=== PATIENT | female | born 1955 | race Two or more races ===

== ENCOUNTER 2017-07-24 10:27 | Emergency (ER) | payer BC, OTHER ==
[~2017-07-24] VITALS: Ht 165.1 cm; Wt 72.6 kg
[2017-07-24 10:37] VITALS: BP 163/105
[2017-07-24 11:16] LABS: APPEARANCE,URINE Slightly Cloudy (CLEAR); BILIRUBIN,URINE Negative (NEGATIVE); BLOOD, URINE Small Ery/uL (NEGATIVE); COLOR,URINE Yellow (YELLOW); KETONES,URINE Negative (NEGATIVE); LEUKOCYTE ESTERASE ,URINE Large (NEGATIVE); NITRITE, URINE Positive (NEGATIVE); PH,URINE 6.5 (5.0-8.0); PROTEIN,URINE Negative (NEGATIVE); UGLUCOSE Negative (NEGATIVE); UROBILINOGEN,URINE 0.2 EU/dL (0.2)
[2017-07-24 11:22] LABS: BACTERIA,URINE 1+ /HPF (None Seen); SQUAMOUS EPITHELIAL CELL,UR Few /HPF (None Seen); WBC,URINE 21-50 /HPF (0-3)
== END 2017-07-24 11:37 | disposition home or self-care (01) ==
LOC: ER 10:29
DX: N39.0 Urinary tract infection, site not specified (principal); E78.00 Pure hypercholesterolemia, unspecified
CPT/HCPCS: 81000-TC; 87086-TC; 87186-TC; A4606; Z7610

== ENCOUNTER 2017-11-25 12:54 | Emergency (ER) | payer BC, OTHER ==
[~2017-11-25] VITALS: Ht 165.1 cm; Wt 74.8 kg
[2017-11-25 13:02] VITALS: BP 138/78
[2017-11-25 14:23] LABS: APPEARANCE,URINE Slightly Cloudy (CLEAR); BILIRUBIN,URINE Negative (NEGATIVE); BLOOD, URINE Trace-intact Ery/uL (NEGATIVE); COLOR,URINE Dark (YELLOW); KETONES,URINE Negative (NEGATIVE); LEUKOCYTE ESTERASE ,URINE Small (NEGATIVE); NITRITE, URINE Positive (NEGATIVE); PH,URINE 7.5 (5.0-8.0); PROTEIN,URINE 30 mg/dl (NEGATIVE); UGLUCOSE 100 MG/DL mg/dL (NEGATIVE)
[2017-11-25 14:25] LABS: BACTERIA,URINE 3+ /HPF (None Seen); SQUAMOUS EPITHELIAL CELL,UR Few /HPF (None Seen)
== END 2017-11-25 14:59 | disposition home or self-care (01) ==
LOC: ER 12:55
DX: R30.0 Dysuria (principal); N39.0 Urinary tract infection, site not specified; E78.00 Pure hypercholesterolemia, unspecified
CPT/HCPCS: 81000-TC; 87086-TC; A4606; Z7610

== ENCOUNTER 2020-04-17 23:01 | Emergency (ER) | payer MEDICARE, OTHER ==
[~2020-04-17] VITALS: Ht 157.5 cm; Wt 81.6 kg
--- NOTE | 2020-04-17 23:10 | NUR ---
PT GOLDY FROM HOME C/O DIFFICULTY SWALLOWING AND SORE THROAT. PT STATES SHE HAD AN ALLERGIC REACTION TO HONEY X2 DAYS AGO AND WAS SEEN BY PMD, PRESCRIBED PREDNISONE. PT O2 SAT 100% ROOM AIR, SPEAKING SOFT SPOKEN IN COMPLETE SENTENCES. PT AAOX4. RESPIRATIONS EVEN AND UNLABORED. SKIN WARM AND INTACT. NO ACUTE DISTRESS NOTED AT THIS TIME. PLACED ON MONITOR, WILL CONTINUE TO MONITOR
[2020-04-17] MEDS ORDERED: diphenhydrAMINE HCL 50 MG CAPSULE ONE (23:22)
[2020-04-17] MEDS ORDERED: FAMOTIDINE (20 MG) 20 MG TABLET ONE ×2 (23:22→23:24)
[2020-04-17] MEDS ORDERED: diphenhydrAMINE HCL 50 MG CAPSULE PO ONE (23:30)
[2020-04-17] MEDS ORDERED: FAMOTIDINE (20 MG) 20 MG TABLET PO ONE (23:30)
--- NOTE | 2020-04-17 23:34 | NUR ---
PT REFUSED BENADRYL AND PEPCID AT THIS TIME. DR. PRICE MADE AWARE
[2020-04-17 23:37] LABS: EOSINOPHILS % (AUTO) 1.4 % (0.0-6.0); HEMATOCRIT 39 % (33-45); HEMOGLOBIN 13.1 g/dL (11.5-14.8); LYMPHOCYTES # (AUTO) 1.8 /CMM (0.8-4.8); LYMPHOCYTES % (AUTO) 39.1 % (20.0-44.0); MEAN CORPUSCULAR HGB CONC 34 g/dl (31.0-36.0); MEAN CORPUSCULAR VOLUME 92 fL (82-100); MONOCYTES # (AUTO) 0.4 /CMM (0.1-1.30); NEUTROPHILS # (AUTO) 2.4 /CMM (1.8-8.9); NEUTROPHILS % (AUTO) 50.5 % (43.0-81.0); PLATELET COUNT (AUTO) 219 /CMM (150-450); RED BLOOD CELL COUNT(AUTO) 4.21 MIL/uL (4.0-5.2); WHITE BLOOD COUNT (AUTO) 4.7 K/uL (4.3-11.0)
[2020-04-17] MEDS ORDERED: IOHEXOL-300 100 ML VIAL IV ONE (23:38)
[2020-04-17] MEDS ORDERED: IV NS 0.9% 250 ML IV ONE (23:39)
[2020-04-17 23:47] LABS: CALCIUM, SERUM 9.3 mg/dL (8.5-10.1); CREATININE 0.7 mg/dL (0.6-1.3); POTASSIUM 3.6 mmol/L (3.5-5.1)
--- NOTE | 2020-04-18 00:06 | NUR ---
[facility]
--- NOTE | 2020-04-18 00:19 | NUR ---
PT RETURNED FROM CT
--- NOTE | 2020-04-18 01:27 | NUR ---
Patient discharged to home in stable condition. Written and verbal after care instructions given. Patient verbalizes understanding of instruction.IV removed. Catheter intact and site benign. Pressure and 4x4 applied to site. No bleeding noted. Pt ambulatory with a steady gait. instructed not to drive, pt verbalized understanding, picked up by family
[2020-04-18 01:28] VITALS: BP 138/79
== END 2020-04-18 01:28 | disposition home or self-care (01) ==
LOC: ER 23:03
DX: S50.311A Abrasion of right elbow, initial encounter (principal); J04.0 Acute laryngitis; E78.00 Pure hypercholesterolemia, unspecified; Z98.890 Other specified postprocedural states; X58.XXXA Exposure to other specified factors, initial encounter; Y93.89 Activity, other specified; Y92.89 Other specified places as the place of occurrence of the external cause; Y99.8 Other external cause status
CPT/HCPCS: 36415; 70491; 80048; 85025; 99285; J7050; Q0163; Q9967

== ENCOUNTER 2022-01-19 23:54 | Emergency (ER) | payer MEDICARE, OTHER ==
[~2022-01-19] VITALS: Ht 157.5 cm; Wt 77.1 kg
--- NOTE | 2022-01-20 00:25 | NUR ---
[id number]. NAUSEA AND MULTIPLE VOMMITING AND DIARRHEA S/P BOWEL PREP FOR COLONOSCOPY TOMORROW. PATIENT ALERT AND ORIENTED X3.AMBULATORY WITH NON LABORED BREAHTING IN BED 03 ON MONITOR AND POX.
[2022-01-20] MEDS ORDERED: ONDANSETRON HCL/PF 4 MG/2 ML VIAL ONE (00:45)
--- NOTE | 2022-01-20 00:48 | NUR ---
BLOOD COLLECTED AND SENT TO LAB
[2022-01-20] MEDS ORDERED: ONDANSETRON HCL/PF 4 MG/2 ML VIAL IVP ONE (01:00)
[2022-01-20] MEDS ORDERED: IV NS 0.9% 1,000 ML BAG IV ONE (01:00)
[2022-01-20 01:09] LABS: BASOPHILS % (AUTO) 0.5 % (0.0-2.0); EOSINOPHILS % (AUTO) 0.4 % (0.0-6.0); HEMATOCRIT 41 % (33-45); LYMPHOCYTES # (AUTO) 1.1 K/uL (0.8-4.8); LYMPHOCYTES % (AUTO) 14.8 % (20.0-44.0); MEAN CORPUSCULAR HGB CONC 34 g/dl (31.0-36.0); MEAN CORPUSCULAR VOLUME 91 fL (82-100); MONOCYTES # (AUTO) 0.4 K/uL (0.1-1.30); MONOCYTES % (AUTO) 4.8 % (2.0-12.0); NEUTROPHILS # (AUTO) 6.1 K/uL (1.8-8.9); NEUTROPHILS % (AUTO) 79.5 % (43.0-81.0); PLATELET COUNT (AUTO) 229 K/uL (150-450); RED BLOOD CELL COUNT(AUTO) 4.53 MIL/uL (4.0-5.2); WHITE BLOOD COUNT (AUTO) 7.6 K/uL (4.3-11.0)
[2022-01-20 01:18] LABS: CALCIUM, SERUM 9.3 mg/dL (8.5-10.1); CREATININE 0.8 mg/dL (0.6-1.3); POTASSIUM 4.1 mmol/L (3.5-5.1)
[2022-01-20 01:23] LABS: ALBUMIN 4.5 g/dL (3.4-5.0); BILIRUBIN,DIRECT 0.2 mg/dL (0.0-0.2); BILIRUBIN,TOTAL 1.1 mg/dL (0.2-1.0)
[2022-01-20] MEDS ORDERED: ONDA4TAB5 PO (01:23)
--- NOTE | 2022-01-20 01:58 | NUR ---
IV removed. Catheter intact and site benign. Pressure and 4x4 applied to site. No bleeding noted.
--- NOTE | 2022-01-20 02:04 | NUR ---
Patient discharged to home in stable condition. Written and verbal after care instructions given. Patient verbalizes understanding of instruction.
[2022-01-20 02:05] VITALS: BP 128/68
== END 2022-01-20 02:05 | disposition home or self-care (01) ==
LOC: ER 01-20 00:01
DX: R11.2 Nausea with vomiting, unspecified (principal); R19.7 Diarrhea, unspecified; E78.00 Pure hypercholesterolemia, unspecified; Z87.440 Personal history of urinary (tract) infections; Z90.49 Acquired absence of other specified parts of digestive tract; Z79.899 Other long term (current) drug therapy
CPT/HCPCS: 99283; 96374; 96361; 85025; 80048; 83690; 80076; 36415; J2405; J7030